=== PATIENT | female | born 1975 | race Caucasian/White ===

== ENCOUNTER 2023-01-12 18:06 | Emergency (ER) | payer OTHER ==
[~2023-01-12] VITALS: Ht 157.5 cm; Wt 68.0 kg
[2023-01-12] MEDS ORDERED: NEURONTIN300 MG PO (19:12)
[2023-01-12] MEDS ORDERED: BACLOFEN20 MG PO (19:13)
[2023-01-12] MEDS ORDERED: EFFEXOR XR150 MG PO (19:13)
[2023-01-12] MEDS ORDERED: VENLAFAXINE HCL50 MG PO (19:14)
[2023-01-12] MEDS ORDERED: AMITRIPTYLINE H25 MG PO (19:14)
[2023-01-12] MEDS ORDERED: ZANAFLEX2 M1 PO (19:15)
[2023-01-12] MEDS ORDERED: OXYBUTYNIN CHLO10 MG PO (19:15)
[2023-01-12] MEDS ORDERED: METHYLPHENIDATE20 M1 PO (19:15)
[2023-01-12] MEDS ORDERED: DALFAMPRIDINE E10 MG PO (19:16)
[2023-01-12] MEDS ORDERED: CARBAMAZEPINE200 M2 PO (19:18)
[2023-01-12] MEDS ORDERED: OCREVUS300 MG/10 IV (19:19)
--- OUTSIDE RECORDS SUMMARY | 2023-01-12 20:00 | XMS ---
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 E.DAldair VISIT COUNT (12 MO.) 1 DANIAL Hayes TOTAL 1 NOTE: Visits indicate total known visits. ED/UCC VISIT TRACKING (12 MO.) 01/12/2023 18:09 DANIAL [facility]ady OR TYPE: Emergency COMPLAINT: - R LEG IS DRAGGING INPATIENT VISIT TRACKING (12 MO.) No inpatient visits to display in this time frame [id number]
== END 2023-01-12 21:42 | disposition home or self-care (01) ==
LOC: ED 18:06
DX: G35 Multiple sclerosis (principal); M19.90 Unspecified osteoarthritis, unspecified site; Z88.8 Allergy status to other drugs, medicaments and biological substances; Z88.0 Allergy status to penicillin; Z79.899 Other long term (current) drug therapy
CPT/HCPCS: 36415; 70450; 80053; 81001; 85025; 96365; 96375; 99285-25; J2930